=== PATIENT | female | born 1955 | race Caucasian/White ===

== ENCOUNTER 2021-03-18 09:12 | Emergency (ER) | payer MEDICAID ==
[~2021-03-18] VITALS: Ht 160 cm; Wt 82.1 kg
[2021-03-18 09:20] VITALS: BP 169/92
--- NOTE | 2021-03-18 09:26 | NUR ---
PT TAKEN TO BED 12.
--- NOTE | 2021-03-18 09:59 | NUR ---
65/Female c/o abdominal pain since October. Complains of abdomen and chest pain. Patient states "pain is currently 10/10 and pain in abdomen has started to worsen over the past 2 weeks. Chest and SOB started yesterday." Patient states she is experincing N/V since yesterday AM and has thrown up 5x since yesterday AM. Upon palpation felt tenderness in all four quadrants of adbomen. Patient states "have no appetite." Currently is experincing a ACOSTA and Dizzness, denies taking blood pressure medications this morning. Hx: HTN Allergies: Denies
[2021-03-18] MEDS ORDERED: MORPHINE SULFATE 4 MG/ML SYR IVP ONE (10:15)
[2021-03-18] MEDS ORDERED: ALUMINUM HYD/MAG/SIMETHICONE 30 ML UDC PO ONE (10:15)
[2021-03-18] MEDS ORDERED: ONDANSETRON 4 MG/2 ML VIAL IVP ONE (10:15)
--- NOTE | 2021-03-18 10:42 | NUR ---
PATIENT TAKEN TO CT VIA W/C
--- NOTE | 2021-03-18 10:49 | NUR ---
PATIENT RETURNED FROM CT BACK TO ROOM VIA W/C
--- NOTE | 2021-03-18 11:05 | NUR ---
Collected blood work bedside and took to lab
--- NOTE | 2021-03-18 11:32 | NUR ---
VITAL SIGNS TAKEN BEDSIDE, PATIENT CURRENTLY RESTING IN BED. GIVEN WARM BLANKET
[2021-03-18 11:37] LABS: HEMATOCRIT 30.7 % (36-48); HEMOGLOBIN 10.3 g/dL (12.0-16.0); MEAN CORPUSCULAR HEMOGLOBIN 29 pg (27-31); MEAN CORPUSCULAR HGB CONC 34 g/dL (33-37); MEAN CORPUSCULAR VOLUME 87.2 fL (80-94); PLATELET COUNT (AUTO) 189 K/uL (140-450); RED BLOOD CELL COUNT(AUTO) 3.52 MIL/uL (4.20-5.40); RED CELL DISTRIBUTION WIDTH 14.4 % (11.6-13.7); WHITE BLOOD COUNT (AUTO) 6.4 K/uL (4.8-10.8)
[2021-03-18 11:47] LABS: ALBUMIN 2.7 g/dL (3.4-5.0); ANION GAP 10.3 (8-16); CARBON DIOXIDE 28.9 mmol/L (21-32); POTASSIUM 3.2 mmol/L (3.5-5.1); TOTAL BILIRUBIN 0.3 mg/dL (0.0-1.0)
[2021-03-18 12:24] LABS: NEUTROPHILS % (AUTO) 80.7 % (42.2-75.2)
[2021-03-18 12:25] LABS: BASOPHILS % (AUTO) 0.3 % (0.0-2.0); EOSINOPHILS % (AUTO) 1.1 % (0.0-4.0); LYMPHOCYTES % (AUTO) 9.2 % (20.5-51.1); MONOCYTES % (AUTO) 8.7 % (1.7-9.3)
[2021-03-18 12:26] LABS: EOSINOPHILS # (AUTO) 0.1 K/uL (0-0.4); LYMPHOCYTES # (AUTO) 0.6 K/uL (2.5-16.5); MONOCYTES # (AUTO) 0.6 K/uL (0.8-1.0); NEUTROPHILS # (AUTO) 5.2 K/uL (1.8-7.7)
[2021-03-18 12:31] LABS: APPEARANCE,URINE HAZY (CLEAR); BILIRUBIN,URINE NEGATIVE (NEGATIVE); BLOOD, URINE TRACE-I (NEGATIVE); COLOR,URINE YELLOW (YELLOW); LEUKOCYTE ESTERASE ,URINE TRACE (NEGATIVE); NITRITE, URINE NEGATIVE (NEGATIVE); PH,URINE 5.5 (5.0-9.0); UGLUCOSE NEGATIVE (NEGATIVE)
[2021-03-18 13:01] LABS: COARSE GRANULAR CASTS,URINE 0-10 /LPF (None Seen)
--- NOTE | 2021-03-18 13:08 | NUR ---
Pt resting, eyes closed easily arousable. HOB lowered for comfort, VSS, will continue to monitor.
[2021-03-18] MEDS ORDERED: cefTRIAXone 1,000 MG VIAL ONE (13:22)
[2021-03-18] MEDS ORDERED: CEPH-588 PO (13:28)
[2021-03-18] MEDS ORDERED: ONDA-24 PO (13:28)
[2021-03-18] MEDS ORDERED: ACET-8386 PO (13:28)
[2021-03-18 13:56] VITALS: BP 120/71
--- NOTE | 2021-03-18 13:57 | NUR ---
Patient discharged with v/s stable. Written and verbal after care instructions given ABDOMINAL PAIN AND URINARY TRACT INFECTION and explained. Patient alert, oriented and verbalized understanding of instructions. Ambulatory with steady gait. All questions addressed prior to discharge. ID band removed. Patient advised to follow up with PMD. Rx of KEFLEX 500MG PO QID, NORCO 5MG-325MG PO Q6-8H PRN SEVERE PAIN, AND ZOFRAN 4MG ODT Q8H PRN N/V given. Patient educated on indication of medication including possible reaction and side effects. Opportunity to ask questions provided and answered.
--- NOTE | 2021-03-24 10:43 | NUR ---
LATE ENTRY---Urine culture results received from lab. Results shown to Dr. Espinal. No new orders needed at this time. Treatment appropriate. Copy placed in C&S folder.
== END 2021-03-18 13:57 | disposition home or self-care (01) ==
LOC: MED 09:12
DX: N39.0 Urinary tract infection, site not specified (principal); R10.13 Epigastric pain; R11.2 Nausea with vomiting, unspecified; I10 Essential (primary) hypertension; Z90.49 Acquired absence of other specified parts of digestive tract; Z90.710 Acquired absence of both cervix and uterus; Z79.899 Other long term (current) drug therapy
CPT/HCPCS: 36415; 74176; 80053; 81001; 83690; 85025; 87086; 87186; 96365; 96375; 99284; J0696; J2270; J2405

== ENCOUNTER 2021-03-31 10:47 | Inpatient (IN) | payer MEDICAID ==
[~2021-03-31] VITALS: Ht 160 cm; Wt 81.6 kg
[~2021-03-31 10:47] MED LIST: ACET-8386 PO; CEPH-588 PO; ONDA-24 PO
[2021-03-31 10:50] VITALS: BP 140/93
--- NOTE | 2021-03-31 11:00 | NUR ---
PT AMBULATED TO BED 01
--- NOTE | 2021-03-31 11:00 | NUR ---
Owen rodarte in [facility] - 03/31/21 at 1115 by [email or web address] PT AMBULATED TO BED 02
--- NOTE | 2021-03-31 11:22 | NUR ---
65YO F C/O 07/05 LOWER BACK PAIN X 5 MONTHS AND BILATERAL FEET EDEMA X 1 WEEK. DENIES INJURY OR TRAUMA TO AREA. PT STATES SHE IS EXPERNCING DIFF BREATHING, CHEST PAIN "ESPECIALLY WHEN SHE WALKS/PERFORMS PHYSICAL ACTIVITY". PT STATES SHE HAS BEEN EXPERICING DIZZINESS DUE TO PAIN. DENIES URINARY PROBLEMS. TOOK TYLENOL LAST NIGHT WHICH PROVIDED NO RELIEF. PMH: HTN, GASTRITIS MEDS: LOSARTAN NKA
--- NOTE | 2021-03-31 11:26 | NUR ---
EMT AT BEDSIDE FOR EKG
--- NOTE | 2021-03-31 11:30 | NUR ---
PT AMBULATED TO RESTROOM STEADY GAIT
--- NOTE | 2021-03-31 11:50 | NUR ---
DR GARCIA AT BEDSIDE EXAMINING
[2021-03-31 12:47] LABS: BASOPHILS # (AUTO) 0.1 K/uL (0.00-0.22); BASOPHILS % (AUTO) 0.6 % (0.0-2.0); EOSINOPHILS # (AUTO) 0.2 K/uL (0-0.4); EOSINOPHILS % (AUTO) 2.3 % (0.0-4.0); HEMATOCRIT 31.9 % (36-48); HEMOGLOBIN 10.7 g/dL (12.0-16.0); LYMPHOCYTES # (AUTO) 1.3 K/uL (2.5-16.5); LYMPHOCYTES % (AUTO) 13.7 % (20.5-51.1); MEAN CORPUSCULAR HEMOGLOBIN 29 pg (27-31); MEAN CORPUSCULAR HGB CONC 34 g/dL (33-37); MONOCYTES # (AUTO) 0.7 K/uL (0.8-1.0); MONOCYTES % (AUTO) 6.9 % (1.7-9.3); NEUTROPHILS # (AUTO) 7.5 K/uL (1.8-7.7); NEUTROPHILS % (AUTO) 76.5 % (42.2-75.2); PLATELET COUNT (AUTO) 327 K/uL (140-450); RED BLOOD CELL COUNT(AUTO) 3.71 MIL/uL (4.20-5.40); RED CELL DISTRIBUTION WIDTH 14.2 % (11.6-13.7); WHITE BLOOD COUNT (AUTO) 9.8 K/uL (4.8-10.8)
[2021-03-31 12:58] LABS: APPEARANCE,URINE CLEAR (CLEAR); BILIRUBIN,URINE 1+ (NEGATIVE); BLOOD, URINE NEGATIVE (NEGATIVE); COLOR,URINE YELLOW (YELLOW); LEUKOCYTE ESTERASE ,URINE TRACE (NEGATIVE); NITRITE, URINE NEGATIVE (NEGATIVE); PH,URINE 5.5 (5.0-9.0); UGLUCOSE NEGATIVE (NEGATIVE)
--- NOTE | 2021-03-31 13:00 | NUR ---
PT AMBULATED TO RESTROOM. GAIT STEADY
[2021-03-31 13:02] LABS: ALBUMIN 3.2 g/dL (3.4-5.0); ANION GAP 12.1 (8-16); CARBON DIOXIDE 28.7 mmol/L (21-32); CREATININE 1.1 mg/dL (0.6-1.3); POTASSIUM 3.8 mmol/L (3.5-5.1); TOTAL BILIRUBIN 0.2 mg/dL (0.0-1.0)
--- NOTE | 2021-03-31 13:03 | NUR ---
PT AMBULATED TO BEDSIDE. GAIT STEADY. VITALS STABLE. WILL CONTUINE TO MONITOR
[2021-03-31 13:19] LABS: RBC,URINE NONE SEEN /HPF (0-5); WBC,URINE 0-5 /HPF (0-5)
[2021-03-31] MEDS ORDERED: FUROSEMIDE 20 MG/2 ML VIAL IVP ONE ×2 (13:40→13:44)
[2021-03-31] MEDS ORDERED: LOSA100T1 PO (13:48)
[2021-03-31] MEDS ORDERED: HYDR-4004 PO (13:48)
[2021-03-31] MEDS ORDERED: MAG SULF 2000 MG/WATER PREMIX 50 ML IV PRN (14:20)
[2021-03-31] MEDS ORDERED: DOCUSATE SODIUM 100 MG GELCAP PO PRN (14:20)
[2021-03-31] MEDS ORDERED: ONDANSETRON 4 MG/2 ML VIAL IM/IVP PRN (14:20)
[2021-03-31] MEDS ORDERED: HYDROcodone/APAP 5/325 MG 1 TAB TAB PO PRN (14:20)
[2021-03-31] MEDS ORDERED: SODIUM PHOS / POTASSIUM PHOS 1 PKT PDR PO PRN (14:20)
[2021-03-31] MEDS ORDERED: POTASSIUM CHLORIDE 40 MEQ, LIDOCAINE MPF 1% 25 MG in NACL 0.9% 250 ML IV PRN (14:20)
[2021-03-31] MEDS ORDERED: ACETAMINOPHEN 325 MG TAB PO PRN (14:20)
[2021-03-31 14:46] LABS: MAGNESIUM 1.9 mg/dL (1.8-2.4); PHOSPHORUS 3.5 mg/dL (2.5-4.9)
--- NOTE | 2021-03-31 15:12 | NUR ---
DR LAN AT BEDSIDE EXAMINING PT
[2021-03-31] MEDS ORDERED: hydrALAZINE 20 MG/ML VIAL IVP PRN (15:30)
[2021-03-31] MEDS ORDERED: carvediloL 6.25 MG TAB ONE (15:40)
[2021-03-31] MEDS: carvediloL 6.25 MG TAB PO SCH ×2 (15:46→20:45)
--- NOTE | 2021-03-31 15:53 | NUR ---
REPORT GIVEN TO MARIELOS FLORES ON [facility]ST FOR TRANSFER
--- NOTE | 2021-03-31 16:08 | NUR ---
Patient will be admitted to care of DR RUDDY TADEO. Admited to TELE. Will go to room 119A. Belongings list completed. Report to SANDRA ARCEO.
[2021-03-31 16:30] VITALS: BP 171/93
--- NOTE | 2021-03-31 16:30 | NUR ---
PRIOR TO PATIENT ARRIVAL, RECEIVED REPORT FROM ED NURSE. PT RESTING IN BED. ABLE TO MAKE NEEDS KNOWN. RESPIRATIONS EVEN AND UNLABORED WITH NO SOB OR RESPIRATORY DISTRESS. SKIN WARM AND DRY TO TOUCH. MRSA SWAB COLLECTED AND SENT TO LAB. VITAL SIGNS OBTAINED. SAFETY MEASURES IN PLACE. WILL CONTINUE TO MONITOR
[2021-03-31] MEDS ORDERED: METOPROLOL 25 MG TAB PO SCH (17:00)
--- NOTE | 2021-03-31 18:00 | NUR ---
PT FAMILY AT BEDSIDE VISITING PATIENT. NO SIGNS OF DISTRESS AT THIS TIME. SAFETY MEASURES IN PLACE. WILL CONTINUE TO MONITOR
--- NOTE | 2021-03-31 19:20 | NUR ---
RECEIVED REPORT FROM MORNING SHIFT RN. PATIENT IN BED AWAKE, ALERT SYRIAC SPEAKING. NO SOB NOTED. DENIES PAIN. ON TELE MONITORING. BED IN LOW POSITION. CALL LIGHT WITHIN REACH.
--- NOTE | 2021-03-31 19:26 | NUR ---
ENDORSED AT BEDSIDE TO NIGHTSHIFT NURSE FOR CONTINUITY OF CARE
[2021-03-31 20:00] VITALS: BP 141/82
--- NOTE | 2021-03-31 20:45 | NUR ---
SCHEDULED MEDICATION GIVEN PER MD ORDERED.
--- NOTE | 2021-03-31 23:00 | NUR ---
MADE ROUNDS , PATIENT ON THE PHONE TALKING.
[2021-04-01] VITALS: BP 144/68
--- NOTE | 2021-04-01 03:49 | NUR ---
CHECKED PATIENT SLEEPING , RESPIRATION EVEN UNLABORED.
[2021-04-01 04:00] VITALS: BP 149/76
[2021-04-01 05:50] LABS: CARBON DIOXIDE 28.1 mmol/L (21-32)
[2021-04-01 06:03] LABS: ANION GAP 11.1 (8-16); POTASSIUM 4.2 mmol/L (3.5-5.1)
[2021-04-01 06:07] LABS: BASOPHILS # (AUTO) 0.1 K/uL (0.00-0.22); BASOPHILS % (AUTO) 0.9 % (0.0-2.0); EOSINOPHILS # (AUTO) 0.3 K/uL (0-0.4); EOSINOPHILS % (AUTO) 2.7 % (0.0-4.0); HEMATOCRIT 31.5 % (36-48); HEMOGLOBIN 10.5 g/dL (12.0-16.0); LYMPHOCYTES # (AUTO) 1.6 K/uL (2.5-16.5); LYMPHOCYTES % (AUTO) 16.7 % (20.5-51.1); MEAN CORPUSCULAR HEMOGLOBIN 29 pg (27-31); MEAN CORPUSCULAR HGB CONC 33 g/dL (33-37); MEAN CORPUSCULAR VOLUME 86.9 fL (80-94); MONOCYTES # (AUTO) 0.6 K/uL (0.8-1.0); MONOCYTES % (AUTO) 6.5 % (1.7-9.3); NEUTROPHILS # (AUTO) 7.2 K/uL (1.8-7.7); NEUTROPHILS % (AUTO) 73.2 % (42.2-75.2); PLATELET COUNT (AUTO) 330 K/uL (140-450); RED BLOOD CELL COUNT(AUTO) 3.63 MIL/uL (4.20-5.40); RED CELL DISTRIBUTION WIDTH 14.5 % (11.6-13.7); WHITE BLOOD COUNT (AUTO) 9.8 K/uL (4.8-10.8)
--- NOTE | 2021-04-01 07:28 | NUR ---
ENDORSED TO AM RN FOR CONTINUITY OF CARE. PATIENT IS STABLE.
--- NOTE | 2021-04-01 07:35 | NUR ---
RECEIVED REPORT FROM PIPE COVERER NURSE. PATIENT SUPINE IN BED, SLEEPING, AWAKENS TO NAME CALLING. ALERT, ABLE TO MAKE NEEDS KNOWN. L AC 20G, SL. BREATHING EVEN AND UNLABORED, NO SIGNS OF ACUTE DISTRESS NOTED, ON RA. MEDICARE BILLER IN PLACE. SAFETY MEASURES IN PLACE.
[2021-04-01 08:00] VITALS: BP 125/86
[2021-04-01] MEDS: FUROSEMIDE 20 MG/2 ML VIAL IVP SCH (09:00)
[2021-04-01] MEDS ORDERED: hydroCHLOROthiazide 25 MG TAB PO SCH (09:00)
[2021-04-01] MEDS: carvediloL 6.25 MG TAB PO SCH ×2 (09:01→22:07)
[2021-04-01] MEDS: LOSARTAN 50 MG TAB PO SCH (09:01)
[2021-04-01] MEDS: MORPHINE SULFATE 2 MG/ML SYR IVP PRN ×2 (09:02→17:51)
--- NOTE | 2021-04-01 09:14 | NUR ---
ADMINISTERED SCHEDULED MEDS PER MD ORDER. PRN MORPHINE FOR BACK PAIN, SEE PAIN ASSESSMENT NOTES. MED EDUCATION PROVIDED, PATIENT VERBALIZES UNDERSTANDING. MEDICATIONS TOLERATED WELL WITH SIPS OF WATER.
--- NOTE | 2021-04-01 09:23 | NUR ---
PATIENT HAS BEEN SCREENED AND CATEGORIZED MODERATE NUTRITION RISK. PATIENT WILL BE SEEN WITHIN 3-5 DAYS OF ADMISSION. 04/03/21 04/05/[address]
--- NOTE | 2021-04-01 10:50 | NUR ---
DR DUFFY ROUNDING ON PATIENT AT THIS TIME.
--- NOTE | 2021-04-01 11:03 | NUR ---
PT AT BEDSIDE, PATIENT STABLE.
[2021-04-01 12:00] VITALS: BP 116/65
--- NOTE | 2021-04-01 12:00 | NUR ---
PATIENT RESTING IN BED, ON HER CELL PHONE. BREATHING EVEN AND UNLABORED, NO SIGNS OF ACUTE DISTRESS NOTED.
[2021-04-01] MEDS: PANTOPRAZOLE 40 MG TABEC PO SCH (13:22)
--- NOTE | 2021-04-01 13:25 | NUR ---
ADMINISTERED SCHEDULED MEDS PER MD ORDER. MED EDUCATION PROVIDED, PATIENT VERBALIZES UNDERSTANDING. PATIENT LAYING DOWN TO REST AT THIS TIME.
[2021-04-01 16:00] VITALS: BP 114/69
--- NOTE | 2021-04-01 19:30 | NUR ---
ENDORSED TO SEARCH CONSULTANT NURSE FOR CONTINUITY OF CARE. PATIENT STABLE AT THIS TIME.
--- NOTE | 2021-04-01 19:31 | NUR ---
RECEIVED BEDSIDE REPORT FROM AM NURSE. PATIENT IN BED RESTING, DENIES PAIN.
[2021-04-01 20:00] VITALS: BP 132/78
--- NOTE | 2021-04-01 22:20 | NUR ---
MEDICATIONS GIVEN ORDERED.
[2021-04-02] VITALS: BP 137/68
--- NOTE | 2021-04-02 03:21 | NUR ---
MADE ROUNDS , PT IS ASLEEP.
[2021-04-02 04:00] VITALS: BP 123/66
[2021-04-02 06:10] LABS: BASOPHILS # (AUTO) 0.1 K/uL (0.00-0.22); BASOPHILS % (AUTO) 0.8 % (0.0-2.0); EOSINOPHILS # (AUTO) 0.3 K/uL (0-0.4); HEMATOCRIT 30.4 % (36-48); HEMOGLOBIN 10.2 g/dL (12.0-16.0); LYMPHOCYTES % (AUTO) 19.8 % (20.5-51.1); MEAN CORPUSCULAR HEMOGLOBIN 29 pg (27-31); MEAN CORPUSCULAR HGB CONC 34 g/dL (33-37); MEAN CORPUSCULAR VOLUME 84.9 fL (80-94); MONOCYTES # (AUTO) 0.7 K/uL (0.8-1.0); NEUTROPHILS # (AUTO) 7.1 K/uL (1.8-7.7); NEUTROPHILS % (AUTO) 69.4 % (42.2-75.2); PLATELET COUNT (AUTO) 321 K/uL (140-450); RED BLOOD CELL COUNT(AUTO) 3.57 MIL/uL (4.20-5.40); RED CELL DISTRIBUTION WIDTH 13.8 % (11.6-13.7); WHITE BLOOD COUNT (AUTO) 10.2 K/uL (4.8-10.8)
[2021-04-02 06:11] LABS: ANION GAP 11.2 (8-16); CARBON DIOXIDE 26.2 mmol/L (21-32); CREATININE 1.1 mg/dL (0.6-1.3); POTASSIUM 3.4 mmol/L (3.5-5.1)
--- NOTE | 2021-04-02 07:20 | NUR ---
ENDORSED TO AM RN FOR CONTINUITY OF CARE. PATIENT IN STABLE CONDITION.
--- NOTE | 2021-04-02 07:25 | NUR ---
RECEIVED REPORT FROM NIGHT NURSE PT IS AAOX4 ON ROOM AIR, CARDIAC DIET LAST BOWEL MOVEMENT 03/31/21 SKIN INTACT IV INTACT ON LEFT AC SALINE LOCK, WITH FLUID RESTRICTION 1500 ML, AMBULATORY, CHEST XRAY NEGATIVE CT ABDOMEN WITH CONTRAST PENDING. SAFETY MEASURES IN PLACE AND CALL LIGHT WITHIN REACH, WILL CONTINUE TO MONITOR.
[2021-04-02 08:00] VITALS: BP 113/51
[2021-04-02] MEDS: carvediloL 6.25 MG TAB PO SCH ×2 (09:00→20:56)
[2021-04-02] MEDS: LOSARTAN 50 MG TAB PO SCH (09:00)
[2021-04-02] MEDS: FUROSEMIDE 20 MG/2 ML VIAL IVP SCH (09:26)
[2021-04-02] MEDS: PANTOPRAZOLE 40 MG TABEC PO SCH (09:26)
--- NOTE | 2021-04-02 09:30 | NUR ---
PT VITAL SIGNS TAKEN. ORDERED MEDICATIONS ADMINISTERED. LOSARTAN 50MG AND CARVEDILOL 6.25MG HELD DUE TO LOW BLOOD PRESSURE 113/51. PT COMPLAINS OF LOW BACK PAIN AND LEG PAIN. WILL CONTINUE TO MONITOR.
--- NOTE | 2021-04-02 11:00 | NUR ---
PATIENT TRANSFER TO [facility] FROM TELE. PER DOCTORS ORDER.
--- NOTE | 2021-04-02 13:00 | NUR ---
MADE ROUNDS PT IS RESTING NO DISTRESS NOTED
--- NOTE | 2021-04-02 15:22 | NUR ---
PATIENT COMPLAINS OF LOW BACK PAIN 5/10 VITAL SIGNS TAKEN PRIOR TO MEDICATION BP 129/65 MI 73. PT TOLERATED WELL WILL CONTINUE TO MONITOR.
--- NOTE | 2021-04-02 18:35 | NUR ---
PT POTASSIUM LEVEL 3.4. ADMINISTERED POTASSIUM IV 40mEq.
--- NOTE | 2021-04-02 19:31 | NUR ---
ENDORSED TO NIGHT NURSE FOR CONTINUITY OF CARE. PT IS STABLE.
--- NOTE | 2021-04-02 19:32 | NUR ---
RECEIVED PATIENT FROM AM NURSE FOR CONTINUITY OF CARE. PATIENT IS A/A/O X4. RESTING IN BED, RESPIRATORY EVEN AND UNLABORED, ON ROOM AIR, NO SIGN OF DISTRESS NOTED. SKIN WARM, DRY, NON DIAPHORETIC. IV ON LEFT AC 20G, INTACT AND PATENT, IS INFUSING POTASSIUM CHLORIDE AT 68ML/HR ORDER. PATIENT DENIES ANY PAIN OR DISCOMFORT. ABLE TO MAKE NEEDS KNOW. PLAN OF CARE DISCUSSED, PATIENT VERBALIZED UNDERSTANDING. FLUID RESTRICTION 1500ML/DAY. CALL LIGHT WITHIN REACH. WILL CONTINUE TO MONITOR.
[2021-04-02 20:00] VITALS: BP 140/59
--- NOTE | 2021-04-02 20:56 | NUR ---
SCHEDULE MEDICATIONS GIVEN WITH EDUCATION. PATIENT VERBALIZED UNDERSTANDING. PATIENT TOLERATED WELL. CALL LIGHT WITHIN REACH. WILL CONTINUE TO MONITOR.
--- NOTE | 2021-04-02 22:00 | NUR ---
ROUND CHECK. PATIENT IS RESTING IN BED, AROUSABLE TO VOICE. NO SIGN OF DISTRESS NOTED. CALL LIGHT WITHIN REACH. WILL CONTINUE TO MONITOR.
--- NOTE | 2021-04-03 | NUR ---
ROUND CHECK. PATIENT IS SLEEPING, CHEST RISE AND FALL, NO SIGN OF DISTRESS NOTED. CALL LIGHT WITHIN REACH. WILL CONTINUE TO MONITOR.
--- NOTE | 2021-04-03 02:00 | NUR ---
ROUND CHECK. PATIENT IS SLEEPING, CHEST RISE AND FALL, NO SIGN OF DISTRESS NOTED. CALL LIGHT WITHIN REACH. WILL CONTINUE TO MONITOR.
[2021-04-03 04:00] VITALS: BP 121/66
--- NOTE | 2021-04-03 04:00 | NUR ---
VITAL SIGNS WITHIN NORMAL LIMIT. PATIENT IS NO SIGN OF DISTRESS. CALL LIGHT WITHIN REACH. WILL CONTINUE TO MONITOR.
--- NOTE | 2021-04-03 06:00 | NUR ---
ROUND CHECK. PATIENT IS SLEEPING, CHEST RISE AND FALL, NO SIGN OF RESPIRATORY DISTRESS. CALL LIGHT WITHIN REACH. WILL CONTINUE TO MONITOR.
[2021-04-03 06:23] LABS: BASOPHILS # (AUTO) 0.1 K/uL (0.00-0.22); BASOPHILS % (AUTO) 0.8 % (0.0-2.0); EOSINOPHILS # (AUTO) 0.4 K/uL (0-0.4); EOSINOPHILS % (AUTO) 4.5 % (0.0-4.0); HEMATOCRIT 30.3 % (36-48); HEMOGLOBIN 10.1 g/dL (12.0-16.0); LYMPHOCYTES % (AUTO) 22.5 % (20.5-51.1); MEAN CORPUSCULAR HEMOGLOBIN 29 pg (27-31); MEAN CORPUSCULAR HGB CONC 34 g/dL (33-37); MEAN CORPUSCULAR VOLUME 86.5 fL (80-94); MONOCYTES # (AUTO) 0.6 K/uL (0.8-1.0); MONOCYTES % (AUTO) 7.1 % (1.7-9.3); NEUTROPHILS # (AUTO) 5.7 K/uL (1.8-7.7); NEUTROPHILS % (AUTO) 65.1 % (42.2-75.2); PLATELET COUNT (AUTO) 315 K/uL (140-450); RED CELL DISTRIBUTION WIDTH 14.4 % (11.6-13.7); WHITE BLOOD COUNT (AUTO) 8.8 K/uL (4.8-10.8)
[2021-04-03 06:43] LABS: ANION GAP 11.6 (8-16); CARBON DIOXIDE 27.5 mmol/L (21-32); CREATININE 1.1 mg/dL (0.6-1.3); POTASSIUM 4.1 mmol/L (3.5-5.1)
--- NOTE | 2021-04-03 07:20 | NUR ---
ENDORSED PATIENT TO AM NURSE FOR CONTINUITY OF CARE. PATIENT STABLE.
--- NOTE | 2021-04-03 07:20 | NUR ---
RECEIVED BEDSIDE REPORT FROM SENIOR QC TECHNICIAN NURSE FOR CONTINUITY OF CARE. PATIENT IS SLEEPING RESPIRATION EVEN UNLABORED ON ROOM AIR. NO DISTRESS NOTED. SKIN IS WARM AND DRY. IV PATENT AND INTACT. PLAN OF CARE WAS DISCUSSED. ALL SAFETY MEASURES IN PLACE. BED IS AT LOW POSITION. CALL LIGHT WITHIN REACH, WILL CONTINUE TO MONITOR.
[2021-04-03 08:00] VITALS: BP 135/74
[2021-04-03] MEDS: PANTOPRAZOLE 40 MG TABEC PO SCH (08:36)
[2021-04-03] MEDS: carvediloL 6.25 MG TAB PO SCH (08:37)
[2021-04-03] MEDS: LOSARTAN 50 MG TAB PO SCH (08:37)
[2021-04-03] MEDS: MORPHINE SULFATE 2 MG/ML SYR IVP PRN (08:47)
--- NOTE | 2021-04-03 08:47 | NUR ---
ALL SCHEDULED MEDS WERE GIVEN PER ORDER. PATIENT COMPLAINED OF PAIN 7/10 PRN PAIN MEDS GIVEN PER ORDER. WILL CONTINUE TO MONITOR
[2021-04-03] MEDS ORDERED: FUROSEMIDE 20 MG TAB PO SCH (09:00)
[2021-04-03] MEDS ORDERED: CARV6.252 PO (10:34)
[2021-04-03] MEDS ORDERED: PANT40EC56 PO (10:34)
[2021-04-03] MEDS ORDERED: FURO20TA8 PO (10:34)
--- NOTE | 2021-04-03 11:53 | NUR ---
DC PLANNING: ORDERS FOR PATIENT TO DC HOME TODAY. PATIENT NEEDS A CANE, PHYSICAL THERAPY WAS ABLE TO FIND AN EXTRA CANE FOR PATIENT TO TAKE HOME. NO OTHER NEEDS IDENTIFIED, CM WILL CONTINUE TO FOLLOW.
--- NOTE | 2021-04-03 12:00 | NUR ---
LUNCH TRAY PROVIDED
[2021-04-03 13:30] VITALS: BP 135/79
--- NOTE | 2021-04-03 14:19 | NUR ---
PATIENT SIGNED DISCHARGE PAPERWORK, EDUCATED ON MEDICATION, DISEASE PROCESS, AND DISCHARGE INSTRUCTION. PATIENT VERBALIZE UNDERSTANDING. AWAITING FOR HER DAUGHTER TO PICK HER UP
--- NOTE | 2021-04-03 14:35 | NUR ---
PATIENT LEFT THE FACILITY WITH HER BELONGINGS AND DISCHARGE PAPERWORK.
== END 2021-04-03 14:35 | disposition home or self-care (01) | DRG 241 ==
LOC: MED 10:47 → MTU 13:52
PROVIDERS: ADMIT Hospitalist; ATTEND Hospitalist
DX: K29.70 Gastritis, unspecified, without bleeding (principal); I50.43 Acute on chronic combined systolic (congestive) and diastolic (congestive) heart failure; E44.1 Mild protein-calorie malnutrition; M41.9 Scoliosis, unspecified; E88.89 Other specified metabolic disorders; K86.89 Other specified diseases of pancreas; I11.0 Hypertensive heart disease with heart failure; Z68.31 Body mass index [BMI] 31.0-31.9, adult; D64.9 Anemia, unspecified; E66.9 Obesity, unspecified; K21.9 Gastro-esophageal reflux disease without esophagitis; I16.0 Hypertensive urgency; N39.0 Urinary tract infection, site not specified; E86.0 Dehydration; M54.32 Sciatica, left side; K57.90 Diverticulosis of intestine, part unspecified, without perforation or abscess without bleeding; E87.6 Hypokalemia; M47.896 Other spondylosis, lumbar region; L90.5 Scar conditions and fibrosis of skin
CPT/HCPCS: 36415; 71045; 72110; 80048; 80053; 81001; 83735; 83880; 84100; 84484; 85025; 87081; 87086; 93005; 96365; 96375; 97110; 97112; 97116; 97163-GP; 97530; 99291; J0696; J1644; J1940; J2001; J2270; J2405; J3480; J7030; J7060; Q9967

== ENCOUNTER 2021-10-12 16:42 | Emergency (ER) | payer MEDICAID ==
[~2021-10-12] VITALS: Ht 160 cm; Wt 76.2 kg
[~2021-10-12 16:42] MED LIST changes: -ACET-8386 PO; +CARV6.252 PO; -CEPH-588 PO; +FURO20TA8 PO; +HYDR-4004 PO; +LOSA100T1 PO; -ONDA-24 PO; +PANT40EC56 PO
[2021-10-12 17:21] VITALS: BP 137/74
[2021-10-12] MEDS ORDERED: METOCLOPRAMIDE 10 MG/2 ML INJ VIAL IM ONE (22:20)
[2021-10-12] MEDS ORDERED: KETOROLAC 15 MG/ML VIAL IM ONE (22:20)
[2021-10-12 22:53] LABS: BASOPHILS # (AUTO) 0.1 K/uL (0.00-0.22); BASOPHILS % (AUTO) 1.8 % (0.0-2.0); HEMATOCRIT 39.8 % (36-48); HEMOGLOBIN 13.3 g/dL (12.0-16.0); LYMPHOCYTES # (AUTO) 1.2 K/uL (2.5-16.5); LYMPHOCYTES % (AUTO) 19.5 % (20.5-51.1); MEAN CORPUSCULAR HEMOGLOBIN 29 pg (27-31); MEAN CORPUSCULAR HGB CONC 34 g/dL (33-37); MEAN CORPUSCULAR VOLUME 85.2 fL (80-94); MONOCYTES # (AUTO) 0.5 K/uL (0.8-1.0); NEUTROPHILS # (AUTO) 4.2 K/uL (1.8-7.7); NEUTROPHILS % (AUTO) 70.7 % (42.2-75.2); PLATELET COUNT (AUTO) 191 K/uL (140-450); RED BLOOD CELL COUNT(AUTO) 4.67 MIL/uL (4.20-5.40)
--- NOTE | 2021-10-12 23:02 | NUR ---
PT RETURN FROM XRAY TO LOBBY
[2021-10-12 23:05] LABS: ALBUMIN 3.3 g/dL (3.4-5.0); CARBON DIOXIDE 28.8 mmol/L (21-32); POTASSIUM 3.8 mmol/L (3.5-5.1); TOTAL BILIRUBIN 0.6 mg/dL (0.0-1.0)
[2021-10-12] MEDS ORDERED: METOCLOPRAMIDE 10 MG/2 ML INJ VIAL ONE (23:56)
[2021-10-12] MEDS ORDERED: KETOROLAC 15 MG/ML VIAL ONE (23:56)
[2021-10-13 00:57] VITALS: BP 137/74
--- NOTE | 2021-10-13 00:57 | NUR ---
Patient discharged with v/s stable. Written and verbal after care instructions given and explained. Patient verbalized understanding. Ambulatory with steady gait. All questions addressed prior to discharge. Advised to follow up with PMD.
[2021-10-13 01:25] LABS: APPEARANCE,URINE CLOUDY (CLEAR); BILIRUBIN,URINE NEGATIVE (NEGATIVE); BLOOD, URINE 1+ (NEGATIVE); COLOR,URINE YELLOW (YELLOW); LEUKOCYTE ESTERASE ,URINE 2+ (NEGATIVE); NITRITE, URINE NEGATIVE (NEGATIVE); PH,URINE 5.5 (5.0-9.0); UGLUCOSE NEGATIVE (NEGATIVE)
[2021-10-13] MEDS ORDERED: CEPH-588 PO ×2 (06:41→08:45)
== END 2021-10-13 00:57 | disposition home or self-care (01) ==
LOC: MED 16:42
DX: U07.1 COVID-19 (principal); N39.0 Urinary tract infection, site not specified; I10 Essential (primary) hypertension; Z79.899 Other long term (current) drug therapy
CPT/HCPCS: 36415; 71045; 80053; 81001; 83690; 83880; 84484; 85025; 87086; 87426; 93005; 96372; 99285; J1885; J2765

== ENCOUNTER 2021-10-15 17:33 | Emergency (ER) | payer MEDICAID ==
[~2021-10-15] VITALS: Ht 154.9 cm; Wt 79.4 kg
[~2021-10-15 17:33] MED LIST changes: +CEPH-588 PO
[2021-10-15 17:40] VITALS: BP 120/66
--- NOTE | 2021-10-15 18:40 | NUR ---
ATTEMPTED TO CALL PT IN TENT FOR EKG, NO RESPONSE.
[2021-10-15] MEDS ORDERED: DICYCLOMINE HCL LIQUID 20 MG, ALUMINUM HYD/MAG/SIMETHICONE 30 ML, LIDOCAINE VISCOUS 2% ... PO ONE ×3 (20:00)
[2021-10-15] MEDS ORDERED: KETOROLAC 30 MG/ML VIAL IM ONE (20:00)
[2021-10-15 20:49] LABS: BASOPHILS % (AUTO) 0.4 % (0.0-2.0); EOSINOPHILS % (AUTO) 0.2 % (0.0-4.0); HEMATOCRIT 36.8 % (36-48); HEMOGLOBIN 12.5 g/dL (12.0-16.0); LYMPHOCYTES # (AUTO) 1.1 K/uL (2.5-16.5); LYMPHOCYTES % (AUTO) 18.4 % (20.5-51.1); MEAN CORPUSCULAR HEMOGLOBIN 29 pg (27-31); MEAN CORPUSCULAR HGB CONC 34 g/dL (33-37); MEAN CORPUSCULAR VOLUME 84.3 fL (80-94); MONOCYTES # (AUTO) 0.6 K/uL (0.8-1.0); MONOCYTES % (AUTO) 9.5 % (1.7-9.3); NEUTROPHILS # (AUTO) 4.4 K/uL (1.8-7.7); NEUTROPHILS % (AUTO) 71.5 % (42.2-75.2); PLATELET COUNT (AUTO) 208 K/uL (140-450); RED BLOOD CELL COUNT(AUTO) 4.37 MIL/uL (4.20-5.40); RED CELL DISTRIBUTION WIDTH 15.3 % (11.6-13.7); WHITE BLOOD COUNT (AUTO) 6.2 K/uL (4.8-10.8)
[2021-10-15] MEDS ORDERED: ALUMINUM HYD/MAG/SIMETHICONE 30 ML UDC ONE (20:50)
[2021-10-15] MEDS ORDERED: DICYCLOMINE HCL LIQUID 10 MG/5 ML UDC ONE (20:50)
[2021-10-15 21:07] LABS: ALBUMIN 2.7 g/dL (3.4-5.0); ANION GAP 14.8 (8-16); CARBON DIOXIDE 25.3 mmol/L (21-32); CREATININE 1.4 mg/dL (0.6-1.3); POTASSIUM 3.1 mmol/L (3.5-5.1); TOTAL BILIRUBIN 0.5 mg/dL (0.0-1.0)
[2021-10-15] MEDS ORDERED: ACET-10509 PO (21:43)
[2021-10-15] MEDS ORDERED: MAG-27 PO (21:43)
[2021-10-15] MEDS ORDERED: POTASSIUM CHLORIDE 10 MEQ TABER PO ONE (21:45)
[2021-10-15 22:00] VITALS: BP 120/66
--- NOTE | 2021-10-15 22:00 | NUR ---
Patient discharged with v/s stable. Written and verbal after care instructions given and explained. Patient alert, oriented and verbalized understanding of instructions. Ambulatory with steady gait. All questions addressed prior to discharge. ID band removed. Patient advised to follow up with PMD. Rx of maalox, tylenol given. Patient educated on indication of medication including possible reaction and side effects. Opportunity to ask questions provided and answered.
== END 2021-10-15 22:00 | disposition home or self-care (01) ==
LOC: MED 17:33
DX: U07.1 COVID-19 (principal); R10.10 Upper abdominal pain, unspecified; E87.6 Hypokalemia; I10 Essential (primary) hypertension; Z79.899 Other long term (current) drug therapy
CPT/HCPCS: 36415; 71045; 80053; 83690; 85025; 93005; 96372; 99285; J1885

== ENCOUNTER 2021-11-24 18:12 | Emergency (ER) | payer MEDICAID ==
[~2021-11-24] VITALS: Ht 154.9 cm; Wt 86.2 kg
[~2021-11-24 18:12] MED LIST changes: +ACET-10509 PO; +MAG-27 PO
[2021-11-24 18:23] VITALS: BP 184/101
--- NOTE | 2021-11-24 18:45 | NUR ---
66/F BIB SELF WITH C/O HIGH BLOOD PRESSURE, HEADACHE AND DIZZINESS X4 DAYS. REPORTS HX OF HTN AND STATES SHE HAS BEEN TAKING HER PRESCRIBED HTN MEDICATION WITH NO RELIEF. DENIES CP, SOB. MEDHX: HTN ALLERGIES: NKA
--- NOTE | 2021-11-24 19:29 | NUR ---
Pt report given to Gabbi RN. Transfer of care at this time.
[2021-11-24 19:37] LABS: BASOPHILS % (AUTO) 0.2 % (0.0-2.0); EOSINOPHILS % (AUTO) 0.2 % (0.0-4.0); HEMATOCRIT 37.8 % (36-48); HEMOGLOBIN 12.7 g/dL (12.0-16.0); LYMPHOCYTES # (AUTO) 1.1 K/uL (2.5-16.5); LYMPHOCYTES % (AUTO) 10.6 % (20.5-51.1); MEAN CORPUSCULAR HEMOGLOBIN 29 pg (27-31); MEAN CORPUSCULAR HGB CONC 34 g/dL (33-37); MEAN CORPUSCULAR VOLUME 85.9 fL (80-94); MONOCYTES # (AUTO) 0.6 K/uL (0.8-1.0); MONOCYTES % (AUTO) 5.5 % (1.7-9.3); NEUTROPHILS # (AUTO) 8.7 K/uL (1.8-7.7); NEUTROPHILS % (AUTO) 83.5 % (42.2-75.2); PLATELET COUNT (AUTO) 284 K/uL (140-450); RED CELL DISTRIBUTION WIDTH 15.1 % (11.6-13.7); WHITE BLOOD COUNT (AUTO) 10.5 K/uL (4.8-10.8)
[2021-11-24 19:56] LABS: ALBUMIN 3.3 g/dL (3.4-5.0); CARBON DIOXIDE 29.8 mmol/L (21-32); POTASSIUM 3.8 mmol/L (3.5-5.1); TOTAL BILIRUBIN 0.2 mg/dL (0.0-1.0)
[2021-11-24] MEDS ORDERED: ALUMINUM HYD/MAG/SIMETHICONE 30 ML UDC PO ONE (20:55)
[2021-11-24] MEDS ORDERED: FAMOTIDINE 20 MG TAB PO ONE (20:55)
--- NOTE | 2021-11-24 21:09 | NUR ---
Patient ambulated to the bathroom with a steady gait and urine cup in hand for possible collection.
--- NOTE | 2021-11-24 21:15 | NUR ---
patient back from bathroom and speaking with the ERMD
[2021-11-24 21:24] VITALS: BP 175/86
--- NOTE | 2021-11-24 21:24 | NUR ---
Patient discharged with v/s stable. Written and verbal after care instructions given and explained. Patient verbalized understanding. Ambulatory with steady gait. ID band removed. All questions addressed prior to discharge. Advised to follow up with PMD.
== END 2021-11-24 21:24 | disposition home or self-care (01) ==
LOC: MED 18:12
DX: R60.0 Localized edema (principal); R06.02 Shortness of breath; R51.9 Headache, unspecified; R42 Dizziness and giddiness; I10 Essential (primary) hypertension; Z98.890 Other specified postprocedural states; Z79.899 Other long term (current) drug therapy; Z79.2 Long term (current) use of antibiotics
CPT/HCPCS: 36415; 71045; 80053; 83880; 84443; 84484; 85025; 93005; 99285; Q0092